=== PATIENT | female | born 1970 | race Caucasian/White ===

== ENCOUNTER 2022-04-11 11:31 | Outpatient (CLI) | payer BC | END 2022-04-11 11:32 | disposition home or self-care (01) | LOC: BICMRI 11:31 | PROVIDERS: ATTEND Family Medicine | DX: R20.0 Anesthesia of skin (principal) | CPT/HCPCS: 70553 ==

== ENCOUNTER 2022-08-09 15:29 | Outpatient (CLI) | payer BC | END 2022-08-09 15:30 | disposition home or self-care (01) | LOC: BICMAMMO 15:29 | PROVIDERS: ATTEND Family Medicine | DX: Z12.31 Encounter for screening mammogram for malignant neoplasm of breast (principal); N63.15 Unspecified lump in the right breast, overlapping quadrants | CPT/HCPCS: 77063; 77067 ==

== ENCOUNTER 2022-08-21 08:34 | Outpatient (CLI) | payer BC ==
[2022-08-21] MEDS ORDERED: Iopamidol-370 76% 500 ML 1 ML ONE (09:01)
== END 2022-08-21 08:35 | disposition home or self-care (01) ==
LOC: BICCT 08:34
PROVIDERS: ATTEND Family Medicine
DX: K52.9 Noninfective gastroenteritis and colitis, unspecified (principal); R63.4 Abnormal weight loss; N20.0 Calculus of kidney; N28.1 Cyst of kidney, acquired; N83.202 Unspecified ovarian cyst, left side; N88.8 Other specified noninflammatory disorders of cervix uteri
CPT/HCPCS: 74177; Q9967

== ENCOUNTER 2022-08-21 14:08 | Outpatient (CLI) | payer BC | END 2022-08-21 14:09 | disposition home or self-care (01) | LOC: BICMAMMO 14:08 | PROVIDERS: ATTEND Family Medicine | DX: N63.10 Unspecified lump in the right breast, unspecified quadrant (principal) | CPT/HCPCS: G0279 ==

== ENCOUNTER 2024-06-01 11:01 | Emergency (ER) | payer BC | END 2024-06-01 12:26 | disposition home or self-care (01) | LOC: ERS 11:01 | DX: S06.0X0A Concussion without loss of consciousness, initial encounter (principal); G90.A Postural orthostatic tachycardia syndrome [POTS]; F41.0 Panic disorder [episodic paroxysmal anxiety]; Z55.6 Problems related to health literacy; W01.0XXA Fall on same level from slipping, tripping and stumbling without subsequent striking against object, initial encounter | CPT/HCPCS: 70450 ==

== ENCOUNTER 2024-09-22 23:50 | Inpatient (IN) | payer BC ==
[2024-09-23 00:56] LABS: #Basophils 0.06 10x3/uL (0.0-0.2); %Basophils 0.5 % (0.0-1.0); %Eosinophils 0.3 % (0.0-10.0); %Lymphocytes 12.2 % (21.0-51.0); %Neutrophils 80.5 % (42.0-75.0); Hematocrit 39.5 % (36.0-47.0); Hemoglobin 13.2 g/dL (12.0-16.0); Mean Corpuscular HGB CONC 33.4 g/dL (32.0-36.0); Mean Corpuscular Hemoglobin 32.6 pg (27.0-31.0); Mean Corpuscular Volume 97.5 fL (78.0-98.0); Mean Platelet Volume 9.1 fL (7.4-10.4); Platelet Count 295 10x3/uL (130-400); RBC Distribution Width 13.4 % (11.5-14.5); Red Blood Cell (RBC) Count 4.05 mill/uL (4.20-5.40)
[2024-09-23 01:12] LABS: ALT (SGPT) 18 U/L (8-55); AST (SGOT) 14 U/L (5-34); Alkaline Phosphatase 61 U/L (40-110); Anion Gap 14 mmol/L (10-20); BUN (Urea Nitrogen) 13 mg/dL (9.8-20.1); Bilirubin, Total 0.2 mg/dL (0.2-1.2); Calc. Creatinine Clearance 0 mL/min (70-130); Carbon Dioxide 18 mmol/L (22-29); Chloride 107 mmol/L (98-107); Estimated GFR 84; Globulin 2.3 g/dL (2.4-3.5); Glucose 158 mg/dL (70-105); Lipase 25 U/L (8-78); Potassium 3.5 mmol/L (3.5-5.1); Protein, Total 6.3 g/dL (6.0-8.3); Sodium 135 mmol/L (136-145)
[2024-09-23 01:16] LABS: Troponin I Less than 0.010 ng/mL (< 0.028)
[2024-09-23] MEDS ORDERED: fentaNYL 50 mcg/mL 1 mL Vial ONE ×4 (02:47→09:28)
[2024-09-23 03:44] LABS: Lactic Acid 2.61 mmol/L (0.5-2.2)
[2024-09-23] MEDS ORDERED: Promethazine HCl 25 MG/ML VIAL IM PRN ×2 (04:13→14:23)
[2024-09-23] MEDS ORDERED: fentaNYL 50 mcg/mL 1 mL Vial SLOW IVP PRN (04:14)
[2024-09-23] MEDS ORDERED: Ondansetron PF 4 MG/2 ML Vial IVP PRN (04:15)
[2024-09-23] MEDS ORDERED: Ondansetron ODT 4 MG TAB SL PRN (04:15)
[2024-09-23] MEDS ORDERED: Acetaminophen 325 MG TAB PO PRN (04:15)
[2024-09-23] MEDS: Lactated Ringer's 1,000 ML IV SCH ×2 (05:30→08:04)
[2024-09-23 05:31] VITALS: BMI 24.5
[2024-09-23] MEDS: Ketorolac Tromethamine 30 MG (1 mL) VIAL IVP PRN (05:48)
[2024-09-23] MEDS: Sodium Chloride 0.9% 1,000 ML IV SCH (05:48)
[2024-09-23] MEDS: cefOXitin Sodium 1 GM in Sodium Chloride 0.9% 100 ML IVPB SCH (05:48)
[2024-09-23] MEDS: Levothyroxine Sodium 50 MCG TAB PO SCH (05:49)
[2024-09-23] MEDS: Acetaminophen 325 MG TAB PO SCH (08:04)
[2024-09-23] MEDS ORDERED: Famotidine/PF 20 mg/2ml Vial SLOW IVP SCH (09:00)
[2024-09-23] MEDS ORDERED: Midazolam HCl 2 mg/2 ml Vial ONE (09:18)
[2024-09-23] MEDS ORDERED: Bupivacaine 0.25% HCL 30 ML VIAL ONE (09:18)
[2024-09-23] MEDS ORDERED: Bupivacaine/Epinephrine 0.25% 30 ML VIAL ONE (10:15)
[2024-09-23] MEDS ORDERED: PROPOFOL 20 ML ONE (11:37)
[2024-09-23] MEDS ORDERED: fentaNYL PF 100 MCG/2 ML SYRINGE ONE ×2 (11:37→13:17)
[2024-09-23] MEDS ORDERED: Rocuronium Bromide 10 MG/ML (10ML VIAL) ONE (11:45)
[2024-09-23] MEDS ORDERED: Lidocaine 1% PF 5 ML VIAL ONE (11:45)
[2024-09-23] MEDS ORDERED: PHENYLEPHRINE-NS 100 MCG/ML 10 ML SYRINGE ONE (12:23)
[2024-09-23] MEDS ORDERED: Ketorolac Tromethamine 30 MG (1 mL) VIAL ONE (12:51)
[2024-09-23] MEDS ORDERED: Ondansetron PF 4 MG/2 ML Vial ONE (12:51)
[2024-09-23] MEDS ORDERED: Dexamethasone 20 MG/5 ML VIAL ONE (12:51)
[2024-09-23] MEDS ORDERED: Iopamidol-370 76% 500 ML MDV (1 ML CHARGE) ONE (13:28)
[2024-09-23] MEDS ORDERED: SUGAMMADEX SODIUM 200 MG/2 ML VIAL ONE (13:45)
[2024-09-23] MEDS ORDERED: Fentanyl 100 MCG/2 ML VIAL SLOW IVP PRN (14:09)
[2024-09-23] MEDS ORDERED: Ondansetron HCl/PF 4 MG/2 ML Vial IVP PRN (14:23)
[2024-09-23] MEDS: clonazePAM 0.5 MG TAB PO SCH (15:00)
[2024-09-23] MEDS: cefOXitin 2 GM in Sodium Chloride 0.9% 100 ML IVPB SCH (17:10)
[2024-09-23] MEDS: Ketorolac Tromethamine 30 MG (1 mL) VIAL IVP SCH (17:11)
[2024-09-23] MEDS: FLU (Fluarix Triv) TS24-25(6MOS UP)/PF 45 MCG/0.5 ML Syringe IM ONE (17:11)
[2024-09-23] MEDS: fentaNYL 50 mcg/mL 1 mL Vial SLOW IVP PRN ×2 (18:37→23:04)
[2024-09-23] MEDS: Topiramate 25 MG TAB PO SCH (20:20)
[2024-09-23] MEDS: Lithium Carbonate 300 MG ER.TAB PO SCH (20:20)
[2024-09-23] MEDS: Acetaminophen 500 MG TAB PO SCH (20:20)
[2024-09-23] MEDS: Enoxaparin 40 MG (0.4 mL) SYRINGE SC SCH (20:21)
[2024-09-23] MEDS: Melatonin 3 MG TAB PO SCH (22:27)
[2024-09-24] MEDS ORDERED: HYDROcodone/Acetaminophen 7.5/325 mg Tablet PO PRN (04:16)
[2024-09-24] MEDS ORDERED: Acetaminophen 325 MG TAB PO PRN (04:16)
[2024-09-24 07:56] LABS: #Basophils 0.04 10x3/uL (0.0-0.2); #Eosinophils Less than 0.03 10x3/uL (0.0-0.7); %Basophils 0.3 % (0.0-1.0); %Eosinophils 0.1 % (0.0-10.0); %Lymphocytes 8.7 % (21.0-51.0); %Monocytes 6.3 % (0.0-10.0); Hematocrit 32.7 % (36.0-47.0); Hemoglobin 11.3 g/dL (12.0-16.0); Mean Corpuscular HGB CONC 34.6 g/dL (32.0-36.0); Mean Corpuscular Hemoglobin 32.2 pg (27.0-31.0); Mean Corpuscular Volume 93.2 fL (78.0-98.0); Mean Platelet Volume 9.7 fL (7.4-10.4); Platelet Count 253 10x3/uL (130-400); RBC Distribution Width 14.1 % (11.5-14.5); Red Blood Cell (RBC) Count 3.51 mill/uL (4.20-5.40)
[2024-09-24] MEDS: Escitalopram Oxalate 20 mg Tablet PO SCH (08:23)
[2024-09-24] MEDS: Polyethylene Glycol 3350 17 GM Packet PO SCH (08:23)
[2024-09-24] MEDS: DULoxetine 60 MG CAP PO SCH (08:23)
[2024-09-24 08:37] LABS: ALT (SGPT) 14 U/L (8-55); AST (SGOT) 15 U/L (5-34); Albumin 2.4 g/dL (3.5-5.0); Alkaline Phosphatase 41 U/L (40-110); Anion Gap 11 mmol/L (10-20); BUN (Urea Nitrogen) 12 mg/dL (9.8-20.1); Bilirubin, Total 0.4 mg/dL (0.2-1.2); Calc. Creatinine Clearance 110 mL/min (70-130); Calcium 8.2 mg/dL (7.8-10.44); Carbon Dioxide 23 mmol/L (22-29); Chloride 106 mmol/L (98-107); Estimated GFR 105; Globulin 2.1 g/dL (2.4-3.5); Glucose 162 mg/dL (70-105); Potassium 3.8 mmol/L (3.5-5.1); Protein, Total 4.5 g/dL (6.0-8.3); Sodium 136 mmol/L (136-145)
[2024-09-26 06:08] LABS: Hematocrit 28.3 % (36.0-47.0); Hemoglobin 9.6 g/dL (12.0-16.0); Mean Corpuscular HGB CONC 33.9 g/dL (32.0-36.0); Mean Corpuscular Hemoglobin 32.1 pg (27.0-31.0); Mean Corpuscular Volume 94.6 fL (78.0-98.0); Mean Platelet Volume 9.6 fL (7.4-10.4); Platelet Count 262 10x3/uL (130-400); RBC Distribution Width 13.8 % (11.5-14.5); Red Blood Cell (RBC) Count 2.99 mill/uL (4.20-5.40)
[2024-09-26 06:27] LABS: Anion Gap 10 mmol/L (10-20); BUN (Urea Nitrogen) 7 mg/dL (9.8-20.1); Calc. Creatinine Clearance 125 mL/min (70-130); Calcium 8.4 mg/dL (7.8-10.44); Carbon Dioxide 24 mmol/L (22-29); Chloride 104 mmol/L (98-107); Estimated GFR 108; Glucose 120 mg/dL (70-105); Potassium 2.9 mmol/L (3.5-5.1); Sodium 135 mmol/L (136-145)
[2024-09-26 06:38] LABS: Band 42 % (5-11); Eosinophils 11 % (0-10); Large Platelets 4.8 % (0-5); Lymphocytes 16 % (21-51); Monocytes 11 % (0-10); Neutrophil 20 % (42-75); Platelet Adequacy Comment Platelets Normal; RBC Morphology Within Normal Limits; Smudge Cells 2.9 %
[2024-09-26 06:55] LABS: Hematocrit 27.8 % (36.0-47.0); Hemoglobin 9.5 g/dL (12.0-16.0); Mean Corpuscular HGB CONC 34.2 g/dL (32.0-36.0); Mean Corpuscular Hemoglobin 32.2 pg (27.0-31.0); Mean Corpuscular Volume 94.2 fL (78.0-98.0); Mean Platelet Volume 9.5 fL (7.4-10.4); Platelet Count 253 10x3/uL (130-400); RBC Distribution Width 13.9 % (11.5-14.5); Red Blood Cell (RBC) Count 2.95 mill/uL (4.20-5.40)
[2024-09-26 07:21] LABS: Anisocytosis MARKED = >30 cells HPF (0-5); Band 29 % (5-11); Burr Cells SLIGHT = 2-5 cells HPF (0-1); Eosinophils 11 % (0-10); Large Platelets 6.8 % (0-5); Lymphocytes 10 % (21-51); Macrocytosis MODERATE=16-30 cells HPF (0-5); Monocytes 17 % (0-10); Neutrophil 34 % (42-75); Platelet Adequacy Comment Platelets Normal; Polychromasia SLIGHT = 2-3 cells HPF (0-2)
[2024-09-26] MEDS ORDERED: Electrolyte Replacement Protocol 1 EACH FS PRN (07:25)
[2024-09-26] MEDS ORDERED: Electrolyte Replacement Protocol FS PRN (07:30)
[2024-09-26] MEDS: Potassium Chloride 40 MEQ in Premix 1 BAG IVPB SCH (10:22)
[2024-09-26] MEDS: Ondansetron PF 4 MG/2 ML Vial IVP PRN (14:29)
[2024-09-26 16:16] LABS: Potassium 3.7 mmol/L (3.5-5.1)
[2024-09-27 11:16] VITALS: BMI 24.5
[2024-09-28 07:57] LABS: Hematocrit 25.2 % (36.0-47.0); Hemoglobin 8.3 g/dL (12.0-16.0); Mean Corpuscular HGB CONC 32.9 g/dL (32.0-36.0); Mean Corpuscular Hemoglobin 31.3 pg (27.0-31.0); Mean Corpuscular Volume 95.1 fL (78.0-98.0); Mean Platelet Volume 8.7 fL (7.4-10.4); Platelet Count 289 10x3/uL (130-400); RBC Distribution Width 14.2 % (11.5-14.5); Red Blood Cell (RBC) Count 2.65 mill/uL (4.20-5.40)
[2024-09-28] MEDS ORDERED: HYDROcodone/Acetaminophen 5/325 mg Tablet PO PRN (07:57)
[2024-09-28 08:19] LABS: ALT (SGPT) 12 U/L (8-55); AST (SGOT) 13 U/L (5-34); Albumin 1.8 g/dL (3.5-5.0); Alkaline Phosphatase 67 U/L (40-110); Anion Gap 13 mmol/L (10-20); BUN (Urea Nitrogen) 8 mg/dL (9.8-20.1); Bilirubin, Total 0.2 mg/dL (0.2-1.2); Calc. Creatinine Clearance 132 mL/min (70-130); Calcium 7.9 mg/dL (7.8-10.44); Carbon Dioxide 18 mmol/L (22-29); Chloride 105 mmol/L (98-107); Estimated GFR 110; Globulin 2.6 g/dL (2.4-3.5); Glucose 82 mg/dL (70-105); Potassium 2.8 mmol/L (3.5-5.1); Protein, Total 4.4 g/dL (6.0-8.3); Sodium 133 mmol/L (136-145)
[2024-09-28 08:23] LABS: Band 15 % (5-11); Eosinophils 5 % (0-10); Lymphocytes 20 % (21-51); Monocytes 13 % (0-10); Neutrophil 47 % (42-75); Nucleated RBC (Manual Ct) 2 % (0); Platelet Adequacy Comment Platelets Normal; Polychromasia SLIGHT = 2-3 cells HPF (0-2)
[2024-09-28] MEDS: Acetaminophen 325 MG TAB PO SCH (08:59)
[2024-09-28] MEDS: Potassium Chloride 20 MEQ TAB PO SCH (09:19)
[2024-09-28 10:09] LABS: Magnesium 1.6 mg/dL (1.6-2.6)
[2024-09-28] MEDS ORDERED: Magnesium 2 GM/50 ML(in water) 2 GM in Premix 1 BAG IVPB SCH (11:30)
[2024-09-28] MEDS: Magnesium 2 GM/50 ML(in water) 2 GM in Premix 1 BAG IVPB SCH (12:53)
[2024-09-28] MEDS: HYDROcodone/Acetaminophen 5/325 mg Tablet PO PRN (14:42)
[2024-09-28 17:35] LABS: #Basophils Less than 0.03 10x3/uL (0.0-0.2); %Basophils 0.2 % (0.0-1.0); %Eosinophils 2.5 % (0.0-10.0); %Lymphocytes 19.7 % (21.0-51.0); %Neutrophils 50.9 % (42.0-75.0); Hematocrit 26.4 % (36.0-47.0); Hemoglobin 9.2 g/dL (12.0-16.0); Mean Corpuscular HGB CONC 34.8 g/dL (32.0-36.0); Mean Corpuscular Hemoglobin 31.9 pg (27.0-31.0); Mean Corpuscular Volume 91.7 fL (78.0-98.0); Platelet Count 357 10x3/uL (130-400); RBC Distribution Width 13.9 % (11.5-14.5); Red Blood Cell (RBC) Count 2.88 mill/uL (4.20-5.40)
[2024-09-28 17:55] LABS: Anisocytosis SLIGHT = 6-15 cells HPF (0-5); Band 25 % (5-11); Burr Cells SLIGHT = 2-5 cells HPF (0-1); Eosinophils 5 % (0-10); Hypochromia SLIGHT = 6-15 cells HPF (0-5); Large Platelets 2.8 % (0-5); Lymphocytes 16 % (21-51); Monocytes 16 % (0-10); Myelocyte 2 % (0-0); Neutrophil 34 % (42-75); Nucleated RBC (Manual Ct) 1 % (0); Platelet Adequacy Comment Platelets Normal; Polychromasia SLIGHT = 2-3 cells HPF (0-2); Reactive Lymphocytes 3 % (0-10); Smudge Cells 13.1 %
[2024-09-28 17:59] LABS: Anion Gap 13 mmol/L (10-20); BUN (Urea Nitrogen) 6 mg/dL (9.8-20.1); Calc. Creatinine Clearance 128 mL/min (70-130); Calcium 8.1 mg/dL (7.8-10.44); Carbon Dioxide 20 mmol/L (22-29); Chloride 103 mmol/L (98-107); Estimated GFR 109; Glucose 100 mg/dL (70-105); Magnesium 2.1 mg/dL (1.6-2.6); Phosphorus 3.3 mg/dL (2.3-4.7); Potassium 3.2 mmol/L (3.5-5.1)
[2024-09-28] MEDS ORDERED: AA 4.25 %/CALCIUM/LYTES/D5W 2,000 ML IV SCH (18:00)
[2024-09-28 18:05] LABS: Sodium 133 mmol/L (136-145)
[2024-09-28] MEDS: AA 4.25 %/CALCIUM/LYTES/D5W 2,000 ML IV SCH (19:02)
[2024-09-28] MEDS: Potassium Chloride 20 MEQ in Premix 1 BAG IVPB SCH (20:58)
[2024-09-28] MEDS: Scopolamine 1 mg/72 hour Patch TD SCH (21:02)
[2024-09-29 06:46] LABS: Hematocrit 24.6 % (36.0-47.0); Hemoglobin 8.4 g/dL (12.0-16.0); Mean Corpuscular HGB CONC 34.1 g/dL (32.0-36.0); Mean Corpuscular Hemoglobin 32.2 pg (27.0-31.0); Mean Corpuscular Volume 94.3 fL (78.0-98.0); Platelet Count 347 10x3/uL (130-400); RBC Distribution Width 14.1 % (11.5-14.5); Red Blood Cell (RBC) Count 2.61 mill/uL (4.20-5.40)
[2024-09-29 06:59] LABS: Anion Gap 10 mmol/L (10-20); BUN (Urea Nitrogen) 8 mg/dL (9.8-20.1); Calc. Creatinine Clearance 148 mL/min (70-130); Calcium 7.9 mg/dL (7.8-10.44); Carbon Dioxide 21 mmol/L (22-29); Chloride 108 mmol/L (98-107); Estimated GFR 113; Glucose 123 mg/dL (70-105); Phosphorus 2.7 mg/dL (2.3-4.7); Potassium 3.5 mmol/L (3.5-5.1); Sodium 135 mmol/L (136-145)
[2024-09-29 08:53] LABS: Band 12 % (5-11); Eosinophils 2 % (0-10); Lymphocytes 20 % (21-51); Metamyelocyte 2 % (0-0); Monocytes 11 % (0-10); Neutrophil 52 % (42-75); Nucleated RBC (Manual Ct) 1 % (0); Platelet Adequacy Comment Platelets Normal; Polychromasia SLIGHT = 2-3 cells HPF (0-2); Reactive Lymphocytes 1 % (0-10); Spherocytes SLIGHT = 1-5 cells HPF (None Seen)
[2024-09-29] MEDS: Magnesium 2 GM/50 ML(in water) 2 GM in Premix 1 BAG IVPB SCH (08:54)
[2024-09-29] MEDS: Potassium Chloride 20 MEQ TAB PO SCH (08:54)
[2024-09-29] MEDS: Heparin 5,000 UNITS/ML VIAL SC SCH (09:05)
[2024-09-29] MEDS: fentaNYL 50 mcg/mL 1 mL Vial SLOW IVP PRN (09:05)
[2024-09-29] MEDS ORDERED: Iopamidol-370 76% 500 ML MDV (1 ML CHARGE) ONE (10:40)
[2024-09-29] MEDS: Methocarbamol 500 MG TAB PO PRN (13:40)
[2024-09-30 07:56] LABS: Hematocrit 26.6 % (36.0-47.0); Hemoglobin 8.8 g/dL (12.0-16.0); Mean Corpuscular HGB CONC 33.1 g/dL (32.0-36.0); Mean Corpuscular Hemoglobin 31.7 pg (27.0-31.0); Mean Corpuscular Volume 95.7 fL (78.0-98.0); Mean Platelet Volume 8.9 fL (7.4-10.4); Platelet Count 434 10x3/uL (130-400); RBC Distribution Width 14.2 % (11.5-14.5); Red Blood Cell (RBC) Count 2.78 mill/uL (4.20-5.40)
[2024-09-30 08:04] LABS: Anion Gap 13 mmol/L (10-20); BUN (Urea Nitrogen) 7 mg/dL (9.8-20.1); Calc. Creatinine Clearance 148 mL/min (70-130); Calcium 8.2 mg/dL (7.8-10.44); Carbon Dioxide 19 mmol/L (22-29); Chloride 106 mmol/L (98-107); Estimated GFR 113; Glucose 144 mg/dL (70-105); Potassium 3.6 mmol/L (3.5-5.1); Sodium 134 mmol/L (136-145)
[2024-09-30 08:21] LABS: Band 11 % (5-11); Eosinophils 2 % (0-10); Large Platelets 2.9 % (0-5); Lymphocytes 11 % (21-51); Monocytes 6 % (0-10); Neutrophil 69 % (42-75); Platelet Adequacy Comment Platelets Normal; Polychromasia SLIGHT = 2-3 cells HPF (0-2); Reactive Lymphocytes 2 % (0-10)
[2024-09-30] MEDS: Enoxaparin 40 MG (0.4 mL) SYRINGE SC SCH (09:26)
[2024-09-30] MEDS: Benzocaine 20% Spray 60 ML CAN PO SCH (13:05)
[2024-10-01 07:02] LABS: Anion Gap 14 mmol/L (10-20); BUN (Urea Nitrogen) 10 mg/dL (9.8-20.1); Calc. Creatinine Clearance 165 mL/min (70-130); Calcium 8.5 mg/dL (7.8-10.44); Carbon Dioxide 21 mmol/L (22-29); Chloride 106 mmol/L (98-107); Estimated GFR 116; Glucose 129 mg/dL (70-105); Potassium 3.3 mmol/L (3.5-5.1); Sodium 138 mmol/L (136-145)
[2024-10-01 07:17] LABS: Hematocrit 26.9 % (36.0-47.0); Mean Corpuscular HGB CONC 33.5 g/dL (32.0-36.0); Mean Corpuscular Hemoglobin 31.8 pg (27.0-31.0); Mean Corpuscular Volume 95.1 fL (78.0-98.0); Mean Platelet Volume 9.1 fL (7.4-10.4); Platelet Count 493 10x3/uL (130-400); Red Blood Cell (RBC) Count 2.83 mill/uL (4.20-5.40)
[2024-10-01 08:06] LABS: Band 5 % (5-11); Eosinophils 2 % (0-10); Lymphocytes 12 % (21-51); Metamyelocyte 4 % (0-0); Monocytes 7 % (0-10); Neutrophil 71 % (42-75); Platelet Adequacy Comment Platelets Normal; Polychromasia SLIGHT = 2-3 cells HPF (0-2)
[2024-10-01] MEDS: Potassium Chloride 20 MEQ TAB PO SCH (08:44)
[2024-10-02] MEDS: Benzocaine/Menthol 1 LOZ LOZ PO PRN (00:26)
[2024-10-02] MEDS: Senokot S 8.6-50 MG TAB PO SCH (09:50)
[2024-10-02] MEDS: Polyethylene Glycol 3350 17 GM Packet PO SCH (09:50)
[2024-10-02] MEDS: traMADol HCl 50 MG TAB PO PRN (10:01)
[2024-10-02] MEDS: Amino Acids 4.25 %/Dextrose 5% 1,000 ML IV SCH (20:08)
[2024-10-03 06:14] LABS: Hematocrit 30.2 % (36.0-47.0); Hemoglobin 9.9 g/dL (12.0-16.0); Mean Corpuscular HGB CONC 32.8 g/dL (32.0-36.0); Mean Corpuscular Hemoglobin 31.6 pg (27.0-31.0); Mean Corpuscular Volume 96.5 fL (78.0-98.0); Mean Platelet Volume 8.6 fL (7.4-10.4); Platelet Count 604 10x3/uL (130-400); RBC Distribution Width 13.8 % (11.5-14.5); Red Blood Cell (RBC) Count 3.13 mill/uL (4.20-5.40)
[2024-10-03 06:21] LABS: Anion Gap 16 mmol/L (10-20); BUN (Urea Nitrogen) 14 mg/dL (9.8-20.1); Calc. Creatinine Clearance 132 mL/min (70-130); Calcium 9.1 mg/dL (7.8-10.44); Carbon Dioxide 22 mmol/L (22-29); Chloride 101 mmol/L (98-107); Estimated GFR 110; Glucose 114 mg/dL (70-105); Potassium 4.2 mmol/L (3.5-5.1); Sodium 135 mmol/L (136-145)
[2024-10-03 06:50] LABS: Band 3 % (5-11); Eosinophils 1 % (0-10); Hypochromia SLIGHT = 6-15 cells HPF (0-5); Lymphocytes 13 % (21-51); Metamyelocyte 4 % (0-0); Monocytes 5 % (0-10); Neutrophil 73 % (42-75); Platelet Adequacy Comment Platelets Increased; Poikilocytosis SLIGHT = 6-15 cells HPF (0-5); Polychromasia SLIGHT = 2-3 cells HPF (0-2); Stomatocytes SLIGHT = 2-5 cells HPF (0-1)
[2024-10-04 05:41] LABS: Hematocrit 29.8 % (36.0-47.0); Hemoglobin 9.8 g/dL (12.0-16.0); Mean Corpuscular HGB CONC 32.9 g/dL (32.0-36.0); Mean Corpuscular Hemoglobin 31.8 pg (27.0-31.0); Mean Corpuscular Volume 96.8 fL (78.0-98.0); Mean Platelet Volume 8.7 fL (7.4-10.4); Platelet Count 622 10x3/uL (130-400); RBC Distribution Width 13.7 % (11.5-14.5); Red Blood Cell (RBC) Count 3.08 mill/uL (4.20-5.40)
[2024-10-04 06:10] LABS: Anisocytosis SLIGHT = 6-15 cells HPF (0-5); Band 4 % (5-11); Eosinophils 2 % (0-10); Hypochromia SLIGHT = 6-15 cells HPF (0-5); Lymphocytes 6 % (21-51); Metamyelocyte 3 % (0-0); Monocytes 6 % (0-10); Myelocyte 4 % (0-0); Neutrophil 72 % (42-75); Platelet Adequacy Comment Platelets Increased; Polychromasia SLIGHT = 2-3 cells HPF (0-2); Reactive Lymphocytes 2 % (0-10); Tear Drops SLIGHT = 2-5 cells HPF (0-1)
[2024-10-05 11:15] VITALS: BP 91/61; TEMP 98.7
== END 2024-10-05 13:59 | disposition home or self-care (01) | DRG 329 ==
LOC: ERS 23:50 → SURG A 09-23 04:04
PROVIDERS: ADMIT Specialist; ATTEND Specialist
PROC: 0DTF0ZZ Resection of Right Large Intestine, Open Approach (ICD-10-PCS; principal; 2024-09-23)
DX: K56.2 Volvulus (principal); K55.059 Acute (reversible) ischemia of intestine, part and extent unspecified; K91.89 Other postprocedural complications and disorders of digestive system; Z88.8 Allergy status to other drugs, medicaments and biological substances; F41.9 Anxiety disorder, unspecified; Z98.890 Other specified postprocedural states; K56.7 Ileus, unspecified; Z79.899 Other long term (current) drug therapy; E83.42 Hypomagnesemia; E87.6 Hypokalemia; F32.A Depression, unspecified
CPT/HCPCS: 36415; 36416; 71045; 74018; 74019; 74177; 80048; 80053; 83605; 83690; 83735; 84100; 84484; 85025; 86850; 86900; 86901; 88307; 88309; 93005; 96374; 96375; 96376; A4314; C1751; C1776; J0665; J0694; J1100; J1644; J1650; J1885; J2250; J2405; J2704; J3010; J3475; J3480; J7030; J7120; Q9967